=== PATIENT | male | born 1950 | race Caucasian/White ===

== ENCOUNTER → 2017-07-21 | Outpatient (CLI) | payer MEDICARE, OTHER ==
[2017-07-21 09:08] LABS: CREATININE 0.87 mg/dL (0.70-1.30)
== END | disposition home or self-care (01) ==
LOC: LAB 08:42 → MRI 09:00
PROVIDERS: Family Medicine
DX: G51.9 Disorder of facial nerve, unspecified (principal)

== ENCOUNTER → 2023-03-08 | Outpatient (CLI) | payer MEDICARE, OTHER | END | disposition home or self-care (01) | LOC: US 07:30 | PROVIDERS: ATTEND Family Medicine | DX: K76.0 Fatty (change of) liver, not elsewhere classified (principal); R16.1 Splenomegaly, not elsewhere classified; N20.0 Calculus of kidney; I71.40 Abdominal aortic aneurysm, without rupture, unspecified; N40.0 Benign prostatic hyperplasia without lower urinary tract symptoms; K76.89 Other specified diseases of liver; R10.84 Generalized abdominal pain; R10.2 Pelvic and perineal pain ==